=== PATIENT | male | born 1975 | race Caucasian/White ===

== ENCOUNTER 2018-05-05 04:01 | Emergency (ER) | payer MEDICAID ==
[~2018-05-05] VITALS: Ht 180.3 cm; Wt 107.5 kg
[~2018-05-05 04:01] MED LIST: APAP/HYDROCODON1 T13 PO; ASPIR 8181 MG PO; BG MC; CIP500 PO; CIPRO500 MG PO; COL100 PO; DEXPF IV; ECO325 PO; FLA500 PO; FLAGYL500 MG PO; FLE10 PO; GLU5 PO; GLU500 PO; LIPITOR10 MG PO; METFORMIN ER500 M1 PO; METFORMIN500 M1 PO; METOPROLOL TART25 M1 PO; MOT600 PO; MOT800 PO; NAPROXEN375 MG PO; NIT0.4 SL; NORCO PO; PLA75 PO; PLAVIX75 MG PO; PRI20 PO; PRILOSEC OTC20 M1 PO; ZES10 PO; ZESTRIL5 MG PO; ZOC20 PO; ZOFI IV
[2018-05-05 04:04] VITALS: Ht 180.3 cm; Wt 107.5 kg
[2018-05-05 05:47] VITALS: BP 138/68
== END 2018-05-05 04:04 | disposition home or self-care (01) ==
LOC: ED 04:01
DX: J02.9 Acute pharyngitis, unspecified (principal); E11.9 Type 2 diabetes mellitus without complications
CPT/HCPCS: 82962; J0561

== ENCOUNTER 2018-07-21 22:44 | Emergency (ER) | payer MEDICAID ==
[2018-07-22 01:16] LABS: RED CELL DISTRIBUTION WIDTH 12.3 % (11.5-14.5)
[2018-07-22 01:19] LABS: BASOPHIL % 0.5 % (0-2); PLATELET COUNT 249 x10^3mcL (130-400)
[2018-07-22 01:25] LABS: CALCIUM 9.3 mg/dL (8.5-10.1); CARBON DIOXIDE 27.5 mmol/L (21-32); CHLORIDE SERUM 103 mmol/L (98-107); CREATININE SERUM 0.9 mg/dL (0.7-1.3); GFR1 > 60 mL/min; GLUCOSE SERUM 223 mg/dL (74-106); SODIUM SERUM 139 mmol/L (136-145)
[2018-07-22 01:31] LABS: ALKALINE PHOSPHATASE 107 U/L (46-116); ALT/SGPT 59 U/L (16-63); AST/SGOT 27 U/L (15-37); BILIRUBIN TOTAL 0.4 mg/dL (0.20-1.00); LIPASE 99 IU/L (73-393); TOTAL PROTEIN, SERUM 7.6 g/dL (6.4-8.2)
[2018-07-22 02:39] VITALS: BP 132/80
== END 2018-07-22 02:40 | disposition home or self-care (01) ==
LOC: ED 22:44
PROVIDERS: Emergency Medicine
DX: M54.6 Pain in thoracic spine (principal); E11.65 Type 2 diabetes mellitus with hyperglycemia; X50.0XXA Overexertion from strenuous movement or load, initial encounter; Y93.89 Activity, other specified; Y92.89 Other specified places as the place of occurrence of the external cause; Y99.8 Other external cause status
CPT/HCPCS: 83880; J1885